=== PATIENT | female | born 2000 | race Two or more races ===

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

== ENCOUNTER 2022-05-13 20:36 | Emergency (ER) | payer OTHER ==
[~2022-05-13] VITALS: Ht 154.9 cm; Wt 76.7 kg
== END 2022-05-13 22:16 | disposition home or self-care (01) ==
LOC: EMR PED 20:36
DX: J06.9 Acute upper respiratory infection, unspecified (principal); Z20.822 Contact with and (suspected) exposure to COVID-19

== ENCOUNTER 2024-06-20 20:27 | Emergency (ER) | payer OTHER ==
[~2024-06-20] VITALS: Ht 154.9 cm; Wt 87.5 kg
[2024-06-20 23:12] LABS: HEMATOCRIT 34.3 % (36.0-45.00); HEMOGLOBIN 11.4 g/dL (12.0-15.00); MEAN CELL VOLUME 81.9 fL (80.00-100.00); MEAN CORPUSCULAR HEMOGLOBIN 27.1 pg (27.00-32.0); MEAN CORPUSCULAR HGB CONC 33.1 g/dl (32.0-36.0); PLATELET COUNT 392 K/uL (150-450); RED BLOOD COUNT 4.19 M/uL (4.00-6.00); RED CELL DISTRIBUTION WIDTH 14.1 % (11.5-14.5)
[2024-06-21 00:15] LABS: PH,URINE 5.5 (5.0-8.0); URINE APPEARANCE Clear; URINE BILIRRUBIN Negative (NEGATIVE); URINE BLOOD Negative; URINE COLOR Yellow; URINE GLUCOSE Negative (NEGATIVE); URINE KETONE Negative (NEGATIVE); URINE LEUKOCYTE Trace; URINE NITRATE Negative; URINE PROTEIN Negative (NEGATIVE)
[2024-06-21 00:34] LABS: URINE BACTERIA 476.2 uL (0.0-1933); URINE EPITHELIAL CELLS 65.7 uL (0.0-38.8); URINE RBC 4.2 uL (0.0-20.8); URINE WBC 30.1 uL (0.0-23.2)
== END 2024-06-21 02:15 | disposition home or self-care (01) ==
LOC: ER 20:29
DX: Z34.90 Encounter for supervision of normal pregnancy, unspecified, unspecified trimester (principal); R21 Rash and other nonspecific skin eruption

== ENCOUNTER 2024-08-03 13:07 | Emergency (ER) | payer OTHER ==
[~2024-08-03] VITALS: Ht 154.9 cm; Wt 88.9 kg
[2024-08-03] MEDS ORDERED: ONDANSETRON HCL 2 MG/ML VIAL IV STA (14:19)
[2024-08-03] MEDS ORDERED: 0.9 % SODIUM CHLORIDE 1,000 ML IV STA (14:19)
[2024-08-03 15:21] LABS: CALCIUM 9.2 mg/dL (8.5-10.1); CREATININE SERUM 0.5 mg/dL (0.55-1.02); GFR 154.28; POTASSIUM 4.38 mEq/L (3.5-5.1)
[2024-08-03 15:33] LABS: HEMATOCRIT 39.3 % (36.0-45.00); HEMOGLOBIN 12.7 g/dL (12.0-15.00); MEAN CELL VOLUME 82.4 fL (80.00-100.00); MEAN CORPUSCULAR HEMOGLOBIN 26.6 pg (27.00-32.0); MEAN CORPUSCULAR HGB CONC 32.3 g/dl (32.0-36.0); PLATELET COUNT 394 K/uL (150-450); RED BLOOD COUNT 4.77 M/uL (4.00-6.00); RED CELL DISTRIBUTION WIDTH 14.7 % (11.5-14.5)
[2024-08-03 16:38] LABS: PH,URINE 5.5 (5.0-8.0); URINE APPEARANCE Clear; URINE BILIRRUBIN Negative (NEGATIVE); URINE BLOOD Negative; URINE COLOR Yellow; URINE GLUCOSE Negative (NEGATIVE); URINE KETONE Negative (NEGATIVE); URINE LEUKOCYTE Negative; URINE NITRATE Negative; URINE PROTEIN Negative (NEGATIVE); URINE UROBILINOGEN 0.2 E.U./dl
[2024-08-03 16:42] LABS: URINE BACTERIA 1099.6 uL (0.0-1933); URINE EPITHELIAL CELLS 29.1 uL (0.0-38.8); URINE RBC 7.6 uL (0.0-20.8); URINE WBC 8.3 uL (0.0-23.2)
[2024-08-03 16:47] LABS: URINE CAST 0.15 uL (0.0-1.40)
== END 2024-08-03 19:03 | disposition home or self-care (01) ==
LOC: ER 13:10
PROVIDERS: Emergency Medicine
DX: O26.891 Other specified pregnancy related conditions, first trimester (principal); Z3A.11 11 weeks gestation of pregnancy; R11.10 Vomiting, unspecified

== ENCOUNTER 2024-08-19 14:48 | Outpatient (CLI) | payer OTHER | END 2024-08-19 14:49 | disposition home or self-care (01) | LOC: PRENATAL 14:48 | PROVIDERS: ATTEND Obstetrics & Gynecology Maternal & Fetal Medicine | DX: O36.80X0 Pregnancy with inconclusive fetal viability, not applicable or unspecified (principal); Z36.82 Encounter for antenatal screening for nuchal translucency; Z14.8 Genetic carrier of other disease; Z3A.13 13 weeks gestation of pregnancy ==

== ENCOUNTER 2024-10-05 09:52 | Outpatient (CLI) | payer OTHER | END 2024-10-05 09:57 | disposition home or self-care (01) | LOC: PRENATAL 09:52 | PROVIDERS: ATTEND Obstetrics & Gynecology Maternal & Fetal Medicine | DX: O44.00 Complete placenta previa NOS or without hemorrhage, unspecified trimester (principal); Z3A.21 21 weeks gestation of pregnancy ==

== ENCOUNTER 2024-10-29 02:47 | Emergency (ER) | payer OTHER ==
[~2024-10-29] VITALS: Ht 160 cm; Wt 91.2 kg
[2024-10-29] MEDS ORDERED: CEFTRIAXONE SODIUM 1,000 MG VIAL IM STA (05:37)
[2024-10-29] MEDS ORDERED: CEFTRIAXONE SODIUM 1,000 MG VIAL ONE (05:43)
== END 2024-10-29 05:54 | disposition home or self-care (01) ==
LOC: ER 02:49
DX: O26.892 Other specified pregnancy related conditions, second trimester (principal); B00.2 Herpesviral gingivostomatitis and pharyngotonsillitis; Z3A.23 23 weeks gestation of pregnancy

== ENCOUNTER 2025-01-11 14:06 | Outpatient (CLI) | payer OTHER | END 2025-01-11 14:07 | disposition home or self-care (01) | LOC: PRENATAL 14:06 | PROVIDERS: ATTEND Obstetrics & Gynecology Maternal & Fetal Medicine | DX: O26.849 Uterine size-date discrepancy, unspecified trimester (principal); O36.8199 Decreased fetal movements, unspecified trimester, other fetus; Z3A.35 35 weeks gestation of pregnancy ==

== ENCOUNTER 2025-01-23 10:46 | Inpatient (IN) | payer OTHER ==
[~2025-01-23] VITALS: Ht 154.9 cm; Wt 104.3 kg
[2025-01-23 10:13] VITALS: BP 115/79
[2025-01-23] MEDS ORDERED: PRENATAL TABLE1 EAC1 PO (10:49)
[2025-01-23] MEDS ORDERED: PEPCID AC20 MG PO (10:50)
[2025-01-23] MEDS ORDERED: ZOFRAN8 MG PO (10:50)
[2025-01-23] MEDS ORDERED: RINGERS SOLUTION,LACTATED 1,000 ML IV SCH (11:15)
[2025-01-23] MEDS ORDERED: AMPICILLIN SODIUM 2,000 MG VIAL IV ONE (11:15)
[2025-01-23 11:42] LABS: BASO % 0.2 % (0.1-1.2); EOS # 0.59 (0.04-0.54); EOS % 4.7 % (0.7-7.0); HEMOGLOBIN 10.4 g/dL (11.2-15.7); LYMPH % 11.9 % (19.3-53.1); MEAN CORPUSCULAR HEMOGLOBIN 25.5 pg (25.6-32.2); MONO # 0.81 (0.24-0.82); MONO % 6.4 % (4.7-12.5); NEUT # 9.61 (1.56-6.13); NEUT % 76.2 % (34.0-71.1); PLATELET COUNT 256 K/uL (163-369); RED BLOOD COUNT 4.08 M/uL (3.93-5.22); RED CELL DISTRIBUTION WIDTH 13.9 % (11.6-14.4); URINE APPEARANCE Clear; URINE BILIRRUBIN Negative (NEGATIVE); URINE BLOOD Negative; URINE COLOR Yellow; URINE GLUCOSE Negative (NEGATIVE); URINE KETONE Trace (NEGATIVE); URINE LEUKOCYTE Trace; URINE NITRATE Negative; URINE PROTEIN 30 (NEGATIVE)
[2025-01-23 11:43] LABS: URINE BACTERIA 18.3 uL (0.0-1933); URINE EPITHELIAL CELLS 36.4 uL (0.0-38.8); URINE RBC 19.2 uL (0.0-20.8); URINE WBC 16.7 uL (0.0-23.2)
[2025-01-23] MEDS ORDERED: AMPICILLIN SODIUM 1,000 MG VIAL IV SCH (12:00)
[2025-01-23 12:12] LABS: ALBUMIN 2.2 gm/dL (3.4-5.0); BILIRUBIN TOTAL 0.13 mg/dL (0.3-1.2); CALCIUM 8.1 mg/dL (8.5-10.1); CREATININE SERUM 0.43 mg/dL (0.55-1.02); GFR 183.61; GLOBULINA 3.5 G/DL (2.4-3.5); POTASSIUM 4.02 mEq/L (3.5-5.1); TOTAL PROTEIN 5.7 gm/dL (6.4-8.2)
[2025-01-23 12:13] LABS: INR < 0.93; PARTIAL THROMBOPLASTIN TIME 26.8 SECONDS (22.0-34.0); PROTHROMBIN TIME 9.8 SECONDS (9.0-11.5)
[2025-01-23 12:27] LABS: URINE CAST 0.29 uL (0.0-1.40)
[2025-01-23 12:28] LABS: URINE CRYSTALS MANY /HPF
[2025-01-23] MEDS ORDERED: OXYTOCIN 500 ML IV SCH (12:45)
[2025-01-23 15:16] VITALS: BP 136/71
[2025-01-23 17:26] VITALS: BP 140/75
[2025-01-23] MEDS ORDERED: MORPHINE SULFATE 4 MG/ML VIAL IV ONE (17:30)
[2025-01-23 19:32] VITALS: BP 147/77
[2025-01-23] MEDS ORDERED: CEFAZOLIN SODIUM 1,000 MG VIAL IV SCH (21:00)
[2025-01-23] MEDS ORDERED: ERYTHROMYCIN BASE OPHT 1GM EACH TUBE OP ONE (21:19)
[2025-01-23] MEDS ORDERED: OXYTOCIN 10 UNITS/ML VIAL ONE (21:19)
[2025-01-23] MEDS ORDERED: OXYTOCIN 1,000 ML IV SCH (23:30)
[2025-01-23] MEDS ORDERED: MORPHINE SULFATE 4 MG/ML VIAL IV PRN (23:30)
[2025-01-23] MEDS ORDERED: KETOROLAC TROMETHAMINE 30 MG VIAL IV PRN (23:30)
[2025-01-23] MEDS ORDERED: PROMETHAZINE HCL 25 MG/ML AMPUL IV PRN (23:30)
[2025-01-24] MEDS ORDERED: MORPHINE SULFATE 4 MG/ML VIAL IV ONE ×2 (00:15→00:45)
[2025-01-24] MEDS ORDERED: OXYTOCIN 10 UNITS/ML VIAL ONE (00:50)
[2025-01-24 03:06] VITALS: BP 124/84
[2025-01-24 08:00] VITALS: BP 120/79
[2025-01-24 08:43] LABS: BASO % 0.3 % (0.1-1.2); EOS # 0.42 (0.04-0.54); EOS % 2.3 % (0.7-7.0); HEMATOCRIT 31.1 % (34.1-44.9); LYMPH # 2.02 (1.18-3.74); MEAN CORPUSCULAR HEMOGLOBIN 25.7 pg (25.6-32.2); MONO # 1.28 (0.24-0.82); NEUT # 14.46 (1.56-6.13); NEUT % 78.9 % (34.0-71.1); PLATELET COUNT 235 K/uL (163-369); RED BLOOD COUNT 3.89 M/uL (3.93-5.22); RED CELL DISTRIBUTION WIDTH 14.2 % (11.6-14.4)
[2025-01-24] MEDS ORDERED: DOCUSATE SODIUM 100MG CAP PO SCH (09:00)
[2025-01-24] MEDS ORDERED: OxyCODONE HCL 5 MG TABLET (ROXICODONE) PO PRN (09:00)
[2025-01-24] MEDS ORDERED: IBUprofen 800 MG TABLET PO PRN (09:00)
[2025-01-24] MEDS ORDERED: SIMETHICONE 125 MG CAPSULE PO SCH (09:00)
[2025-01-24] MEDS ORDERED: ACETAMINOPHEN 325 MG TABLET PO SCH (12:00)
[2025-01-24 16:49] VITALS: BP 119/77
[2025-01-24] MEDS ORDERED: DIPHENHYDRAMINE HCL 25 MG CAPSULE PO PRN (21:00)
[2025-01-24] MEDS ORDERED: DIPHENHYDRAMINE HCL 25 MG CAPSULE PO ONE (21:14)
[2025-01-24] MEDS ORDERED: HYDROCORTISONE 1% 29 G TUBE TOP SCH (21:16)
[2025-01-24] MEDS ORDERED: ERYTHROMYCIN BASE OPHT 1GM EACH TUBE OP ONE (21:30)
[2025-01-24] MEDS ORDERED: OXYTOCIN 10 UNITS/ML VIAL IV ONE (21:30)
[2025-01-25] VITALS: BP 133/63
[2025-01-25 08:00] VITALS: BP 116/77
[2025-01-25 16:00] VITALS: BP 130/86
== END 2025-01-25 16:59 | disposition home or self-care (01) | DRG 786 ==
LOC: LDR 10:46 → OB/GYN 23:29
PROVIDERS: ADMIT Student in an Organized Health Care Education/Training Program; ATTEND Student in an Organized Health Care Education/Training Program
PROC: 4A1HXCZ Monitoring of Products of Conception, Cardiac Rate, External Approach (ICD-10-PCS; 2025-01-23)
PROC: 10D00Z1 Extraction of Products of Conception, Low, Open Approach (ICD-10-PCS; principal; 2025-01-23 20:15)
DX: O62.1 Secondary uterine inertia (principal); O60.14X0 Preterm labor third trimester with preterm delivery third trimester, not applicable or unspecified; O99.824 Streptococcus B carrier state complicating childbirth; O42.013 Preterm premature rupture of membranes, onset of labor within 24 hours of rupture, third trimester; Z3A.35 35 weeks gestation of pregnancy; Z37.0 Single live birth

== ENCOUNTER 2025-01-28 20:40 | Emergency (ER) | payer OTHER ==
[~2025-01-28] VITALS: Ht 154.9 cm; Wt 110.7 kg
[~2025-01-28 20:40] MED LIST changes: +PEPCID AC20 MG PO; +PRENATAL TABLE1 EAC1 PO; +ZOFRAN8 MG PO
[2025-01-28] MEDS ORDERED: LIDEX TOP (22:54)
== END 2025-01-28 23:03 | disposition home or self-care (01) ==
LOC: ER 20:40
DX: R21 Rash and other nonspecific skin eruption (principal)

== ENCOUNTER 2025-05-27 22:00 | Emergency (ER) | payer OTHER ==
[~2025-05-27] VITALS: Ht 154.9 cm; Wt 99.8 kg
[~2025-05-27 22:00] MED LIST changes: +LIDEX TOP
[2025-05-28] MEDS ORDERED: ACETAMINOPHEN 500 MG GEL..CAP PO STA (00:19)
[2025-05-28] MEDS ORDERED: ACETAMINOPHEN 500 MG GEL..CAP PO ONE (01:47)
[2025-05-28 02:12] LABS: URINE APPEARANCE Cloudy; URINE BILIRRUBIN Negative (NEGATIVE); URINE BLOOD Negative; URINE COLOR Yellow; URINE GLUCOSE Negative (NEGATIVE); URINE KETONE Trace (NEGATIVE); URINE LEUKOCYTE Small; URINE NITRATE Negative; URINE PROTEIN Trace (NEGATIVE); URINE UROBILINOGEN 1.0 E.U./dl
[2025-05-28 02:14] LABS: BASO % 0.6 % (0.1-1.2); EOS # 0.22 (0.04-0.54); EOS % 1.9 % (0.7-7.0); LYMPH # 2.30 (1.18-3.74); LYMPH % 19.4 % (19.3-53.1); MEAN PLATELET VOLUME 9.20 fl (9.4-12.4); MONO # 0.76 (0.24-0.82); MONO % 6.4 % (4.7-12.5); NEUT # 8.45 (1.56-6.13); NEUT % 71.4 % (34.0-71.1); RED CELL DISTRIBUTION WIDTH 13.3 % (11.6-14.4)
[2025-05-28 02:16] LABS: URINE BACTERIA 1831.0 uL (0.0-1933); URINE EPITHELIAL CELLS 72.6 uL (0.0-38.8); URINE RBC 9.0 uL (0.0-20.8); URINE WBC 151.3 uL (0.0-23.2)
[2025-05-28 02:30] LABS: URINE CAST 0.58 uL (0.0-1.40)
[2025-05-28] MEDS ORDERED: CEPHALEXIN500 MG PO (03:17)
== END 2025-05-28 03:20 ==
LOC: ER 22:00
PROVIDERS: General Practice
DX: O23.41 Unspecified infection of urinary tract in pregnancy, first trimester (principal); N39.0 Urinary tract infection, site not specified; O26.899 Other specified pregnancy related conditions, unspecified trimester; R10.2 Pelvic and perineal pain; Z3A.01 Less than 8 weeks gestation of pregnancy

== ENCOUNTER 2025-06-02 09:13 | Emergency (ER) | payer OTHER ==
[~2025-06-02] VITALS: Ht 154.9 cm; Wt 102.1 kg
[~2025-06-02 09:13] MED LIST changes: +CEPHALEXIN500 MG PO
[2025-06-02 09:20] VITALS: BP 115/75; O2SAT 99
[2025-06-02] MEDS ORDERED: PANADOL EXTRA500 MG PO (09:22)
[2025-06-02 10:04] LABS: BASO % 0.4 % (0.1-1.2); EOS # 0.27 (0.04-0.54); EOS % 2.3 % (0.7-7.0); LYMPH # 1.91 (1.18-3.74); LYMPH % 16.4 % (19.3-53.1); MEAN PLATELET VOLUME 9.00 fl (9.4-12.4); MONO # 0.65 (0.24-0.82); MONO % 5.6 % (4.7-12.5); NEUT # 8.71 (1.56-6.13); NEUT % 75.0 % (34.0-71.1); RED CELL DISTRIBUTION WIDTH 13.5 % (11.6-14.4)
[2025-06-02] MEDS ORDERED: ONDANSETRON HCL 2 MG/ML VIAL IV ONE (10:15)
[2025-06-02] MEDS ORDERED: 0.9 % SODIUM CHLORIDE 500 ML IV ONE (10:15)
[2025-06-02 10:34] LABS: ALT/SGPT 37.0 U/L (12-78); AST/SGOT 21.0 U/L (15-37); BILIRUBIN TOTAL 0.39 mg/dL (0.3-1.2); BUN CREA RATIO 16.0 (7.0-25.0); CREATININE SERUM 0.49 mg/dL (0.55-1.02); GFR 156.5; GLOBULINA 4.1 G/DL (2.4-3.5); GLUCOSE FASTING 97.0 mg/dL (65-100); OSMOLALITY SERUM 278.0 MOSM/KG (275-295)
[2025-06-02 10:50] LABS: COVID-19 AG NEGATIVE (NEGATIVE)
[2025-06-02 11:03] LABS: URINE APPEARANCE Clear; URINE BILIRRUBIN Negative (NEGATIVE); URINE BLOOD Negative; URINE COLOR Yellow; URINE GLUCOSE Negative (NEGATIVE); URINE KETONE Trace (NEGATIVE); URINE LEUKOCYTE Trace; URINE NITRATE Negative; URINE PROTEIN Trace (NEGATIVE); URINE UROBILINOGEN 1.0 E.U./dl
[2025-06-02 11:08] LABS: URINE BACTERIA 32.3 uL (0.0-1933); URINE EPITHELIAL CELLS 63.3 uL (0.0-38.8); URINE RBC 4.8 uL (0.0-20.8); URINE WBC 32.7 uL (0.0-23.2)
[2025-06-02 11:24] LABS: URINE CAST 0.00 uL (0.0-1.40)
[2025-06-02] MEDS ORDERED: ONDANSETRON HCL 2 MG/ML VIAL ONE (11:30)
[2025-06-02] MEDS ORDERED: ZOFRAN8 MG PO (13:05)
== END 2025-06-02 13:23 | disposition home or self-care (01) ==
LOC: ER 09:13
DX: B34.9 Viral infection, unspecified (principal); Z20.822 Contact with and (suspected) exposure to COVID-19